=== PATIENT | male | born 1960 ===

== ENCOUNTER 2020-11-16 12:15 | Inpatient (IN) | payer OTHER ==
[2020-11-22] MEDS ORDERED: MIRTAZAPINE15 MG (08:05)
[2020-11-22] MEDS ORDERED: LOSARTAN POTASS25 MG (08:05)
[2020-11-22] MEDS ORDERED: VENLAFAXINE HCL75 M1 (14:45)
[2020-11-22] MEDS ORDERED: FAMOTIDINE20 MG (14:45)
[2020-11-22] MEDS ORDERED: RESTORIL30 MG (14:45)
[2020-11-22] MEDS ORDERED: QUETIAPINE FUMA25 MG (14:45)
[2020-11-22] MEDS ORDERED: GENTAMICIN SULF15 G2 (14:45)
[2020-11-26] MEDS ORDERED: CLOTRIMAZOLE-BE15 G1 TOP (08:33)
[2020-11-26] MEDS ORDERED: PERCOCET 5-3251 EACH PO (08:34)
[2020-11-26] MEDS ORDERED: NEURONTIN300 MG PO (08:35)
[2020-11-26] MEDS ORDERED: GAS RELIEF125 MG PO (08:36)
== END 2020-11-26 13:37 | disposition home or self-care (01) | DRG 331 ==
LOC: SURH 11-22 07:15 → O/R 11-22 07:15 → SURH 11-22 09:30
PROVIDERS: ADMIT Surgery; ATTEND Surgery
PROC: 0DTP0ZZ Resection of Rectum, Open Approach (ICD-10-PCS; 2020-11-22)
PROC: 3E0F7SF Introduction of Other Gas into Respiratory Tract, Via Natural or Artificial Opening (ICD-10-PCS; 2020-11-22)
PROC: 0DTQ0ZZ Resection of Anus, Open Approach (ICD-10-PCS; 2020-11-22)
PROC: 07BB0ZX Excision of Mesenteric Lymphatic, Open Approach, Diagnostic (ICD-10-PCS; 2020-11-22)
PROC: 0DTN0ZZ Resection of Sigmoid Colon, Open Approach (ICD-10-PCS; principal; 2020-11-22 09:30)
DX: C20 Malignant neoplasm of rectum (principal); I11.9 Hypertensive heart disease without heart failure; D50.0 Iron deficiency anemia secondary to blood loss (chronic); F32.9 Major depressive disorder, single episode, unspecified; F17.200 Nicotine dependence, unspecified, uncomplicated; F41.9 Anxiety disorder, unspecified; B35.3 Tinea pedis; Z20.822 Contact with and (suspected) exposure to COVID-19; R59.0 Localized enlarged lymph nodes

== ENCOUNTER 2022-01-14 14:44 | Emergency (ER) | payer OTHER ==
[~2022-01-14] VITALS: Ht 165.1 cm; Wt 59.0 kg
[~2022-01-14 14:44] MED LIST: CLOTRIMAZOLE-BE15 G1 TOP; FAMOTIDINE20 MG; GAS RELIEF125 MG PO; GENTAMICIN SULF15 G2; LOSARTAN POTASS25 MG; MIRTAZAPINE15 MG; NEURONTIN300 MG PO; PERCOCET 5-3251 EACH PO; QUETIAPINE FUMA25 MG; RESTORIL30 MG; VENLAFAXINE HCL75 M1
[2022-01-14] MEDS ORDERED: CAPECITABINE150 MG (14:58)
[2022-01-14] MEDS ORDERED: CLONAZEPAM0.5 MG (14:58)
[2022-01-14] MEDS ORDERED: PRILOSEC10 MG (14:58)
[2022-01-14] MEDS ORDERED: REMERON30 M1 (14:59)
[2022-01-14] MEDS ORDERED: NORVASC2.5 M1 (14:59)
== END 2022-01-15 06:18 | disposition home or self-care (01) ==
LOC: ER 14:44
DX: K52.9 Noninfective gastroenteritis and colitis, unspecified (principal); Z88.2 Allergy status to sulfonamides; Z88.1 Allergy status to other antibiotic agents; N43.3 Hydrocele, unspecified